=== PATIENT | female | born 1980 | race Two or more races ===

== ENCOUNTER 2017-02-01 13:16 | Emergency (ER) | payer BC ==
[~2017-02-01] VITALS: Ht 160 cm; Wt 76.8 kg
[2017-02-01] MEDS ORDERED: ONDANSETRON 4MG/2ML VIAL (J2405) IV ONE (14:15)
[2017-02-01] MEDS ORDERED: KETOROLAC 30 MG/ML VIAL (J1885) IV ONE (14:15)
[2017-02-01] MEDS ORDERED: NS 1,000 ML IV ONE (14:15)
[2017-02-01 14:43] LABS: BASO # 0.1 K/mm3 (0.0-0.2); BASO % 0.5 % (0.0-1.0); EOS # 0.2 K/mm3 (0.0-0.50); EOS % 1.4 % (0.0-3.0); LARGE UNSTAINED CELL # 0.1 K/mm3 (0.0-0.4); LYMPH # 3.8 K/mm3 (1.5-4.5); LYMPH % 26.6 % (24.0-44.0); MEAN CORPUSCULAR HEMOGLOBIN 31.8 pg (27.0-33.0); MEAN CORPUSCULAR HGB CONC 32.8 g/dl (32.0-36.5); MONO # 0.5 K/mm3 (0.0-0.8); MONO % 3.5 % (0.0-5.0); NEUTROPHILS # 9.1 K/mm3 (1.8-7.7); NEUTROPHILS % 67.1 % (36.0-66.0); PLATELET COUNT, AUTOMATED 378 k/mm3 (150-450); WHITE BLOOD COUNT 13.6 K/mm3 (4.0-10.0)
[2017-02-01 15:08] LABS: ALBUMIN 4.1 GM/DL (3.2-5.2); ALBUMIN/GLOBULIN RATIO 1.11 (1.00-1.93); ALKALINE PHOSPHATASE 92 U/L (45-117); ALT/SGPT 15 U/L (12-78); AMYLASE 48 U/L (25-115); ANION GAP 7 MEQ/L (8-16); AST/SGOT 11 U/L (15-37); BILIRUBIN,DIRECT < 0.1 MG/DL (0.0-0.2); BILIRUBIN,TOTAL 0.2 MG/DL (0.2-1.0); BLOOD UREA NITROGEN 13 MG/DL (7-18); CALCIUM LEVEL 9.3 MG/DL (8.5-10.1); CARBON DIOXIDE LEVEL 28 MEQ/L (21-32); CHLORIDE LEVEL 107 MEQ/L (98-107); CREATININE FOR GFR 0.72 MG/DL (0.55-1.02); GLOMERULAR FILTRATION RATE > 60.0 (>60); GLUCOSE, FASTING 89 MG/DL (70-105); POTASSIUM SERUM 3.8 MEQ/L (3.5-5.1); SODIUM LEVEL 142 MEQ/L (136-145); TOTAL PROTEIN 7.8 GM/DL (6.4-8.2)
[2017-02-01] MEDS ORDERED: MORPHINE 4 MG/ML 1ML SYRINGE IV ONE (15:15)
--- NOTE | 2017-02-01 15:47 | REP ---
CT ABDOMEN AND PELVIS WITHOUT IV CONTRAST: CT abdomen and pelvis performed without the use of IV contrast. Sagittal and coronal reconstruction images are performed. Visualized lung bases are clear. Liver, spleen, adrenals, pancreas, and left kidney are grossly unremarkable. There is a tiny rey like calcification in the lower pole of the right kidney. There is no ureteral calculus and no evidence of hydroureteronephrosis. There is no abdominal aortic aneurysm. I see no evidence of adenopathy. I see no evidence of free air or free fluid. No bowel wall thickening is seen. There is no evidence of appendicitis. No pelvic mass is seen. Urinary bladder is grossly unremarkable. IMPRESSION: Tiny right intrarenal calcification. No ureteral calculus bilaterally. No hydroureteronephrosis. No evidence of appendicitis. Signed by Dustin San MD 02/02/2017 12:31 P
[2017-02-01] MEDS ORDERED: CITRSOL8 PO (16:06)
[2017-02-01] MEDS ORDERED: NAPR500T PO (16:06)
[2017-02-01 16:15] VITALS: BP 134/86
== END 2017-02-01 16:31 | disposition home or self-care (01) ==
LOC: M ED 13:16
DX: K59.00 Constipation, unspecified (principal); Z72.0 Tobacco use
CPT/HCPCS: 36415; 74176; 80048; 80076; 81001; 82150; 83690; 85025; 96361; 96374; 96375; 99284; J1885; J2405